=== PATIENT | female | born 1985 | race Caucasian/White ===

== ENCOUNTER 2017-12-22 09:36 | Day surgery (SDC) | payer OTHER ==
[2017-12-22] MEDS ORDERED: SOD CHLORIDE 0.9% 1,000 ML IV (10:30)
[2017-12-22] MEDS ORDERED: BUPIVACAINE 0.25%/EPI (SDV) 30 ML INJ (12:34)
[2017-12-22] MEDS ORDERED: LIDOCAINE 1% (MPF) 30 ML INJ (12:34)
[2017-12-22] MEDS ORDERED: ROCURONIUM 50 MG INJ (12:43)
[2017-12-22] MEDS ORDERED: CEFAZOLIN 1 GM INJ (12:44)
[2017-12-22] MEDS ORDERED: PROPOFOL 20 ML (12:44)
[2017-12-22] MEDS ORDERED: FENTAnyl 50 MCG/ML VIAL (12:44)
[2017-12-22] MEDS ORDERED: MIDAZOLAM 1 MG/ML 2 ML INJ (12:44)
[2017-12-22] MEDS ORDERED: ROPIVACAINE 0.5 % 30 ML VIAL (12:45)
[2017-12-22] MEDS: CEFAZOLIN 2 GM/50 ML (PMX) 50 ML IVPB (12:51)
[2017-12-22] MEDS ORDERED: EPHEDrine SULFATE 50 MG/5 ML SYG IV (13:00)
[2017-12-22] MEDS ORDERED: MEPERIDINE 25 MG INJ IV (13:00)
[2017-12-22] MEDS ORDERED: METOCLOPRAMIDE 10 MG INJ IV (13:00)
[2017-12-22] MEDS ORDERED: DIPHENHYDRAMINE 50 MG INJ IV (13:00)
[2017-12-22] MEDS ORDERED: OXYCODONE/ACETAMINOPHEN (5/325) TAB PO (13:00)
[2017-12-22] MEDS ORDERED: ONDANSETRON 4 MG INJ IV (13:00)
[2017-12-22] MEDS ORDERED: HYDROmorphONE 1 MG/5 ML IV SYRINGE IV ×2 (13:00)
[2017-12-22] MEDS ORDERED: FENTAnyl 50 MCG/ML VIAL IV ×2 (13:00)
[2017-12-22] MEDS ORDERED: SUGAMMADEX SODIUM 200 MG/2 ML VIAL IV (13:39)
[2017-12-22] MEDS ORDERED: KETOROLAC 30 MG INJ (13:39)
[2017-12-22] MEDS ORDERED: ONDANSETRON 4 MG INJ (13:39)
[2017-12-22] MEDS ORDERED: DEXAMETHASONE 4 MG/ML 1 ML INJ (13:39)
[2017-12-22] MEDS ORDERED: METOCLOPRAMIDE 10 MG INJ (13:39)
[2017-12-22] MEDS: HYDROmorphONE 1 MG/5 ML IV SYRINGE IV (14:43)
[2017-12-22] MEDS: FENTAnyl 50 MCG/ML VIAL IV ×2 (15:02→15:23)
[2017-12-22] MEDS: HYDROCODONE/APAP (5/325) TAB PO ×2 (15:38→16:30)
== END 2017-12-22 17:10 | disposition home or self-care (01) ==
LOC: SDS 09:36
DX: K80.10 Calculus of gallbladder with chronic cholecystitis without obstruction (principal)
CPT/HCPCS: 47562; 88304

== ENCOUNTER 2017-12-22 18:10 | Emergency (ER) | payer SELFPAY, OTHER | END 2017-12-22 21:44 | disposition left against medical advice (07) | LOC: FTE 18:10 | DX: Z53.21 Procedure and treatment not carried out due to patient leaving prior to being seen by health care provider (principal) ==